=== PATIENT | male | born 1980 | race Two or more races ===

== ENCOUNTER 2024-03-23 09:32 | Emergency (ER) | payer MEDICAID, OTHER ==
[~2024-03-23] VITALS: Ht 188 cm; Wt 100.8 kg
[2024-03-23 10:11] VITALS: BP 134/76; PULSE 71; RESP 16; TEMP 97.9; O2SAT 98
[2024-03-23] MEDS: HYDROcodone-ACET 5/325MG TAB PO ONE (10:50)
[2024-03-23] MEDS ORDERED: CYCL-837 PO (11:57)
[2024-03-23] MEDS ORDERED: IBUP-1454 PO (11:57)
== END 2024-03-23 12:07 | disposition home or self-care (01) ==
LOC: ER 09:32
DX: R07.81 Pleurodynia (principal); V43.62XA Car passenger injured in collision with other type car in traffic accident, initial encounter; Y93.89 Activity, other specified; Y92.488 Other paved roadways as the place of occurrence of the external cause; Y99.8 Other external cause status
CPT/HCPCS: 71101